=== PATIENT | female | born 1970 | race Caucasian/White ===

== ENCOUNTER → 2018-02-17 | Outpatient (CLI) | payer OTHER | END | disposition home or self-care (01) | LOC: KCIC MRI 07:55 | DX: S63.111A Subluxation of metacarpophalangeal joint of right thumb, initial encounter (principal); M25.441 Effusion, right hand; X58.XXXA Exposure to other specified factors, initial encounter; Y93.89 Activity, other specified; Y92.89 Other specified places as the place of occurrence of the external cause; Y99.8 Other external cause status | CPT/HCPCS: 73218 ==